=== PATIENT | male | born 1930 | race Caucasian/White ===

== ENCOUNTER 2017-11-16 20:27 | Emergency (ER) | payer MEDICARE ==
[~2017-11-16] VITALS: Ht 172.7 cm; Wt 88.5 kg
[2017-11-16] MEDS ORDERED: AMOXICILLIN500 MG PO (20:36)
[2017-11-16] MEDS ORDERED: TRAMADOL HCL50 MG PO (20:36)
[2017-11-16] MEDS ORDERED: METOPROLOL SUCC25 MG PO (20:40)
[2017-11-16] MEDS ORDERED: PENTOXIFYLLINE400 MG PO (20:42)
[2017-11-16] MEDS ORDERED: LASIX40 MG PO (20:42)
[2017-11-16] MEDS ORDERED: PEPCID40 MG PO (20:42)
[2017-11-16] MEDS ORDERED: LIPITOR80 MG PO (20:43)
[2017-11-16] MEDS ORDERED: FLOMAX0.4 MG PO (20:43)
[2017-11-16] MEDS ORDERED: ASPIR-LOW81 MG PO (20:44)
[2017-11-16] MEDS ORDERED: FAMCICLOVIR500 MG PO (20:58)
== END 2017-11-16 21:01 | disposition home or self-care (01) ==
LOC: ED 20:27
DX: B02.9 Zoster without complications (principal); I25.2 Old myocardial infarction; Z87.891 Personal history of nicotine dependence; Z79.899 Other long term (current) drug therapy; Z79.82 Long term (current) use of aspirin
CPT/HCPCS: 99283